=== PATIENT | female | born 1955 | race Caucasian/White ===

== ENCOUNTER → 2019-09-05 13:41 | Outpatient (BNVA) | payer BC, SELFPAY | PROVIDERS: PCP Nurse Practitioner Family; Visit Provider Nurse Practitioner Family | DX: N39.0 Urinary tract infection, site not specified (principal); R31.29 Other microscopic hematuria; R82.998 Other abnormal findings in urine | CPT/HCPCS: 80053; 81000 ==

== ENCOUNTER → 2019-12-26 10:57 | Outpatient (BNVA) | payer SELFPAY | PROVIDERS: PCP Nurse Practitioner Family; Visit Provider Nurse Practitioner Family | DX: R30.0 Dysuria (principal); N39.0 Urinary tract infection, site not specified; R31.29 Other microscopic hematuria | CPT/HCPCS: 80053; 81000; 87077; 87086; 87184 ==

== ENCOUNTER → 2020-01-23 14:21 | Outpatient (BNVA) | payer SELFPAY | PROVIDERS: PCP Nurse Practitioner Family; Visit Provider Nurse Practitioner Family | DX: E03.0 Congenital hypothyroidism with diffuse goiter (principal) | CPT/HCPCS: 36415; 84443 ==

== ENCOUNTER → 2020-04-26 11:23 | Outpatient (BNVA) | payer SELFPAY | PROVIDERS: PCP Nurse Practitioner Family | DX: E03.9 Hypothyroidism, unspecified (principal) | CPT/HCPCS: 84439; 84443 ==

== ENCOUNTER → 2020-07-03 09:53 | Outpatient (BNVA) | payer SELFPAY | PROVIDERS: PCP Nurse Practitioner Family; Visit Provider Dermatology | DX: E03.9 Hypothyroidism, unspecified (principal) | CPT/HCPCS: 36415; 84443 ==

== ENCOUNTER → 2020-08-07 08:58 | Outpatient (BNVA) | payer SELFPAY | PROVIDERS: PCP Nurse Practitioner Family; Visit Provider Dermatology | DX: Z01.89 Encounter for other specified special examinations (principal) ==

== ENCOUNTER → 2020-11-06 10:52 | Outpatient (BNVA) | payer SELFPAY | PROVIDERS: PCP Nurse Practitioner Family; Visit Provider Nurse Practitioner Family | DX: E03.9 Hypothyroidism, unspecified (principal) | CPT/HCPCS: 82607; 84443 ==

== ENCOUNTER 2024-12-15 13:00 | Outpatient (RCR) | payer MEDICARE, BC, SELFPAY | END 2024-12-16 23:59 | disposition home or self-care (01) | LOC: GPT 13:00 | DX: M81.0 Age-related osteoporosis without current pathological fracture (principal); M62.81 Muscle weakness (generalized) | CPT/HCPCS: 97110; 97112; 97161; 97530 ==

== ENCOUNTER 2025-01-02 10:55 | Outpatient (RCR) | payer MEDICARE, BC, SELFPAY | END 2025-01-15 23:59 | disposition home or self-care (01) | LOC: GPT 10:55 | DX: M81.0 Age-related osteoporosis without current pathological fracture (principal); M62.81 Muscle weakness (generalized) | CPT/HCPCS: 97110; 97530 ==

== ENCOUNTER 2025-01-25 12:58 | Outpatient (RCR) | payer MEDICARE, BC, SELFPAY | END 2025-01-25 13:44 | disposition home or self-care (01) | LOC: GPT 12:58 | DX: M81.0 Age-related osteoporosis without current pathological fracture (principal); M62.81 Muscle weakness (generalized) | CPT/HCPCS: 97110 ==